=== PATIENT | female | born 2000 | race Caucasian/White ===

== ENCOUNTER 2021-08-28 23:30 | Emergency (ER) | payer OTHER | END 2021-08-29 01:23 | disposition home or self-care (01) | LOC: CSHERS 23:30 | DX: S82.831A Other fracture of upper and lower end of right fibula, initial encounter for closed fracture (principal); S82.841A Displaced bimalleolar fracture of right lower leg, initial encounter for closed fracture; W10.9XXA Fall (on) (from) unspecified stairs and steps, initial encounter | CPT/HCPCS: 29515 ==